=== PATIENT | male | born 1950 | race Hispanic/Latino ===

== ENCOUNTER 2019-09-28 17:38 | Emergency (ER) | payer MEDICARE ==
[2019-09-28 19:15] LABS: HEMATOCRIT 30.5 % (39.0-50.0); HEMOGLOBIN 9.9 g/dl (14.0-18.0); IMMATURE GRANULOCYTES 0.8 % (0.0-5.0); MEAN CORPUSCULAR HGB 29.6 pG CALC (26.0-32.0); MEAN CORPUSCULAR HGB CONC 32.5 g/dL CAL (32.0-36.0); NEUT# 7.34 thou/uL (1.82-7.42); RED BLOOD COUNT 3.35 mill/uL (4.70-6.10); RED CELL DISTRI WIDTH 13.5 % (11.5-15.5)
[2019-09-28 19:38] LABS: ALBUMIN 3.8 g/dL (3.2-5.0); ALKALINE PHOSPHATASE 68 u/l (38-126); ANION GAP 11 (6-22 (CALC)); BILIRUBIN, TOTAL 0.6 mg/dL (0.0-1.4); BUN 47 mg/dL (8-23); BUN/CREATININE RATIO 62 (12-20 (CALC)); CARBON DIOXIDE 26 mmol/l (22-30); CHLORIDE 104 mmol/l (95-108); CREATININE 0.8 mg/dL (0.7-1.3); GFR > 60 ML/MIN (>=60 (CALC)); GFR FOR AFR.AMER. > 60 ML/MIN (>=60 (CALC)); LIPASE 55 u/l (23-300); SGOT/AST 33 u/l (19-48); SODIUM 136 mmol/l (137-146); TOTAL PROTEIN 6.4 g/dL (6.3-8.2)
[2019-09-28 20:14] LABS: PROTHROMBIN TIME 10.2 SECONDS (9.0-12.5)
[2019-09-28] MEDS ORDERED: LISINOPRIL20 MG PO (21:13)
[2019-09-28 21:50] VITALS: BP 152/69
[2019-09-28 21:51] LABS: URINE BILIRUBIN - DIPSTICK NEGATIVE (NEGATIVE); URINE BLOOD DIPSTICK NEGATIVE (NEGATIVE); URINE CLARITY CLEAR; URINE COLOR YELLOW; URINE GLUCOSE - DIPSTICK NEGATIVE (NEGATIVE); URINE KETONE TRACE mg/dL (NEGATIVE); URINE LEUK ESTERASE NEGATIVE (Negative); URINE NITRITE - DIPSTICK NEGATIVE (Negative); URINE PH 6.5 (4.5-8.0); URINE PROTEIN - DIPSTICK NEGATIVE (NEG-TRACE); URINE SPECIFIC GRAVITY 1.015; URINE UROBILINOGEN - DIPSTICK 0.2 E.U./dL (0.2)
== END 2019-09-28 21:50 | disposition short-term general hospital (02) ==
LOC: ED 17:38
PROVIDERS: Emergency Medicine; Family Medicine
DX: K92.2 Gastrointestinal hemorrhage, unspecified (principal); R55 Syncope and collapse
CPT/HCPCS: S0164

== ENCOUNTER 2020-03-22 08:07 | Day surgery (SDC) | payer MEDICARE ==
[~2020-03-22] VITALS: Ht 177.8 cm; Wt 101.6 kg
[~2020-03-22 08:07] MED LIST: FERRAPLUS 90 PO; LISINOPRIL20 MG PO; NORVASC5 M1 PO; PAIN RELIEVER500 MG PO; PROTONIX40 M2 PO; VITAMIN B-12500 MCG PO
[2020-03-22 10:00] VITALS: BP 111/54
== END 2020-03-22 10:15 | disposition home or self-care (01) ==
LOC: ENDO 08:07 → ORM 10:45
PROVIDERS: ATTEND Surgery
PROC: 0DB78ZX Excision of Stomach, Pylorus, Via Natural or Artificial Opening Endoscopic, Diagnostic (ICD-10-PCS; principal; 2020-03-22)
DX: K29.70 Gastritis, unspecified, without bleeding (principal); K21.9 Gastro-esophageal reflux disease without esophagitis; I10 Essential (primary) hypertension; Z87.11 Personal history of peptic ulcer disease; Z20.822 Contact with and (suspected) exposure to COVID-19

== ENCOUNTER 2020-11-15 11:14 | Emergency (ER) | payer MEDICARE ==
[~2020-11-15] VITALS: Ht 177.8 cm; Wt 100.0 kg
[2020-11-15 12:04] LABS: HEMATOCRIT 31.9 % (39.0-50.0); HEMOGLOBIN 10.4 g/dl (14.0-18.0); IMMATURE GRANULOCYTES 0.3 % (0.0-5.0); MEAN CELL VOLUME 91.4 fL CALC (80.0-100.0); MEAN CORPUSCULAR HGB 29.8 pG CALC (26.0-32.0); MEAN CORPUSCULAR HGB CONC 32.6 g/dL CAL (32.0-36.0); NEUT# 7.05 thou/uL (1.82-7.42); RED BLOOD COUNT 3.49 mill/uL (4.70-6.10); RED CELL DISTRI WIDTH 14.5 % (11.5-15.5)
[2020-11-15 12:14] LABS: ALBUMIN 3.9 g/dL (3.2-5.0); ALKALINE PHOSPHATASE 72 u/l (38-126); ANION GAP 15 (6-22 (CALC)); BILIRUBIN, TOTAL 0.4 mg/dL (0.0-1.4); BUN 47 mg/dL (8-23); BUN/CREATININE RATIO 67 (12-20 (CALC)); CARBON DIOXIDE 23 mmol/l (22-30); CHLORIDE 103 mmol/l (95-108); CREATININE 0.7 mg/dL (0.7-1.3); GFR > 60 ML/MIN (>=60 (CALC)); GFR FOR AFR.AMER. > 60 ML/MIN (>=60 (CALC)); POTASSIUM 4.5 mmol/l (3.5-5.1); SGOT/AST 27 u/l (19-48); SODIUM 136 mmol/l (137-146); TOTAL PROTEIN 6.7 g/dL (6.3-8.2)
[2020-11-15 12:25] LABS: MYOGLOBIN 22 ng/mL (0 - 121)
[2020-11-15 14:41] VITALS: BP 142/66
== END 2020-11-15 14:41 | disposition short-term general hospital (02) ==
LOC: ED 11:14
PROVIDERS: Emergency Medicine
DX: K92.2 Gastrointestinal hemorrhage, unspecified (principal); I10 Essential (primary) hypertension; K21.9 Gastro-esophageal reflux disease without esophagitis; Z87.11 Personal history of peptic ulcer disease; Z20.822 Contact with and (suspected) exposure to COVID-19
CPT/HCPCS: S0164

== ENCOUNTER 2023-12-12 09:58 | Emergency (ER) | payer MEDICARE ==
[~2023-12-12] VITALS: Ht 177.8 cm; Wt 104.0 kg
[~2023-12-12 09:58] MED LIST changes: +TAMSULOSIN0.4 MG PO
[2023-12-12] MEDS ORDERED: PROTONIX20 M1 PO (10:12)
[2023-12-12] MEDS ORDERED: CIPROFLOXACIN HCL 500 MG/TAB PO ONE (12:20)
[2023-12-12] MEDS ORDERED: Diph, Acellular Pertussis, Tet 0.5 ML/VIAL (Tdap) SDV IM ONE (12:20)
[2023-12-12] MEDS ORDERED: CEPHALEXIN MONOHYDRATE 500 MG/CAP PO ONE (12:20)
[2023-12-12] MEDS ORDERED: KEFLEX500 MG PO ×2 (12:23→12:27)
[2023-12-12] MEDS ORDERED: CIPROFLOXACN500 MG PO ×2 (12:23→12:27)
[2023-12-12 13:00] VITALS: BP 142/77
== END 2023-12-12 13:00 | disposition home or self-care (01) ==
LOC: ED 09:58
DX: S91.332A Puncture wound without foreign body, left foot, initial encounter (principal); I10 Essential (primary) hypertension; W45.0XXA Nail entering through skin, initial encounter; Y92.007 Garden or yard of unspecified non-institutional (private) residence as the place of occurrence of the external cause